=== PATIENT | male | born 1965 | race Caucasian/White ===

== ENCOUNTER 2017-09-14 13:04 | Emergency (ER) | payer SELFPAY ==
[~2017-09-14] VITALS: Ht 185.4 cm; Wt 95.3 kg
[~2017-09-14 13:04] MED LIST: AMIODARONE 150 MG/3 ML VIAL ONE; ATROPINE 1 MG/10 ML DISP.SYRIN ONE; CALCIUM CHLORIDE 1,000 MG/10 ML DISP.SYRIN IV ONE; EPINEPHrine SYRINGE 1 MG/10 ML SYRINGE ONE; SODIUM BICARB ADULT 8.4% 50 MEQ/50 ML DISP.SYRIN. ONE
--- NOTE | 2017-09-14 13:43 | PHYS DOC ---
Adult General HPI HPI Chief complaint cardiac arrest History of present illness: 52-year-old male who sustained a witnessed cardiac arrest CPR initiated on scene. Patient had 3 episodes of the fib which was shocked 3 times in route by EMS. V. fib degenerated into asystole reportedly by EMS. Patient had a right tibial IO placed and had received 6 mg of epinephrine prior to arrival along with 1250 mL of lactated Ringer. Onset today. location heart. duration constant. no alleviating factors present. Unfortunately due to the patient's medical condition no further history is available this time. Patient arrives with CPR in progress. Past surgical history medical history allergies and social history unable to be obtained because of the patient's medical condition. Review of systems is unable to be obtained because of the medical condition. ED course: 52-year-old gentleman presenting to the emergency department undergoing CPR. No pulse present on arrival. Epinephrine given. Patient was also given atropine bicarbonate calcium chloride and amiodarone. Patient mostly was in PEA and had a few episodes of V. fib which was shocked. Echocardiogram shows no evidence of cardiac activity during pulse checks. Unfortunately resuscitative efforts were unsuccessful and time of was called at 1328. Physical Exam Physical Exam Constitutional: Unresponsive HEENT atraumatic pupils nonreactive. Eyes: Non-reactive pupils Neck: No JVD or crepitus Cardiovascular: No pulse Lungs: Crackles bilaterally with bagging Abdomen is soft and nontender without distention. Skin: Mottled Back: Atraumatic Extremities: No pulse. Neuro: Unresponsive Psych: Does not make eye contact EKG EKG [] Radiology/Procedures Radiology/Procedures [] Course & Med Decision Making Course & Med Decision Making Pertinent Labs and Imaging studies reviewed. (See chart for details) [] Dragon Disclaimer Dragon Disclaimer This electronic medical record was generated, in whole or in part, using a voice recognition dictation system. Departure Departure Impression: Primary Impression: Additional Impression: Cardiopulmonary arrest Disposition: 20 Condition: Referrals: TITA LORENZ (PCP) Critical Care Time Critical care time was [35] minutes exclusive of procedures. Time was spent evaluating the patient ordering the administration of medications, discussing with primary care doctor, documenting, and discussing with family. Problem Qualifiers MAYA MOON MD Sep 14, 2017 13:43
[2017-09-14 18:22] LABS: POTASSIUM ISTAT 3.4 mmol/L (3.5-5.0)
== END 2017-09-14 15:30 | disposition expired ==
LOC: ER 13:04
DX: I46.9 Cardiac arrest, cause unspecified (principal)
CPT/HCPCS: 36415; 80047; 84484; 85014; 85018; 92950; 99291; J0171; J0282; J0461; J3490